=== PATIENT | female | born 2005 | race Caucasian/White ===

== ENCOUNTER 2024-04-18 13:19 | Emergency (ER) | payer OTHER, SELFPAY ==
[2024-04-18 13:40] VITALS: BP 138/82
--- NOTE | 2024-04-18 13:40 | ED.GENMED ---
ED Provider Triage
<Александр Gutierrez PA-C - Last Filed: 04/18/24 13:43>
-
Patient seen by provider in Triage?: Seen in Triage
Attestation: A medical screening examination has been initiated by a qualified medical provider. Based on the assessment performed at this time, it has been determined that an emergent medical condition may exist and the patient has been informed
that further medical evaluation and possible additional diagnostic testing may be needed.
HPI: 18-year-old female presenting to the ER with 3 weeks of cold-like symptoms. Went to urgent care and was given a prescription for doxycycline and reports felt a little bit better but upon completion of the antibiotic started to feel worse.
Patient reports urgent care did a chest x-ray and everything was reportedly unremarkable on the x-ray but had no further testing done. Patient states she has felt febrile but has not had any fevers. No known sick contacts. Basic labs including
monotest ordered, COVID and flu ordered. Patient otherwise stable.
GENERAL: Alert , in no apparent distress
EYE: No visual abnormalities.
NECK: Trachea midline
ENT: No visible abnormalities.
LUNGS: No acute respiratory distress
NEUROLOGICAL: Alert and oriented
SKIN: Skin intact. No visible changes.
MUSCULOSKELETAL: Moving extremities normally
PSYCH: Normal and appropriate interaction.
This is a medical evaluation conducted in person to initiate diagnostic evaluation and provide initial therapeutics. Please see further documentation by the treating clinician.
History of Present Illness
<Александр Gutierrez PA-C - Last Filed: 04/18/24 13:43>
General
Chief Complaint: Cold/Flu/URI Symptoms
Time Seen by Provider: 04/18/24 14:04
<Ailin Simons PA-C - Last Filed: 04/18/24 18:52>
General
Source: patient
Exam Limitations: none
History of Present Illness
History of Present Illness:
18yoF with no significant past medical history presenting with her friend for evaluation of multiple complaints. She states she has been sick for about 3 weeks. She reports cough, nasal congestion, bilateral ear pressure, fevers, and body aches.
Tmax 103 which was a few days ago. She also reports some chest tightness and feeling like she cannot get a deep enough breath. She was seen at urgent care last week and was prescribed doxycycline which seemed to help slightly. She finished
antibiotics 3 days ago. She was also given an albuterol inhaler which helps her breathing temporarily. She denies any history of asthma or smoking. She denies any vomiting, diarrhea, abdominal pain, dysuria. No known sick contacts.
Phy Exam
<Ailin Simons PA-C - Last Filed: 04/18/24 18:52>
General Physical Exam
General Presentation: well appearing and no apparent distress
General age: appears stated age
General Skin: warm and dry
General Habitus: normal
General Mental: alert
ENT Exam
ENT Exam: TM's normal, pharynx normal, neck supple and normocephalic
Cardiovascular Exam
Cardiovascular Exam: regular rate/rhythm and no murmur
Pulmonary Exam
Pulmonary Exam: lungs clear, no respiratory distress, no rales, no crackles and no rhonchi
Neurological Exam
Neurological Exam: alert
Funmi Coma Scale
Eye Opening: Spontaneous
Verbal Response: Oriented
Motor Response: Obeys Commands
GCS Total Score: 15
Skin Exam
Skin Exam: normal color and warm/dry
Psychiatric Exam
Psychiatric Exam: normal mood/affect
Course
<Александр Gutierrez PA-C - Last Filed: 04/18/24 13:43>
Orders/Labs/Results
Orders:
Orders
04/18/24 13:40
Test Result ONCE
04/18/24 13:51
COVID-19 Antigen Urgent
Source: Nasal Swab
Complete Blood Count/With Diff Urgent
Comprehensive Metabolic Panel Urgent
HCG, Serum Qualitative Screen Urgent
Monotest Urgent
Influenza A+B Rapid Molecular Urgent
EMA Source: Nasal Swab
Specimen Description:
04/18/24 14:17
Electrocardiogram (*1) Urgent
Reason for Study: Chest Pain
EKG- Treatment ONCE
CR Chest - 2 Views Urgent
Comment:
Reason For Exam: cough, CP
Abnormal Lab Results
04/18/24
13:51
Absolute Monos (auto) 0.7 H 10^3/uL
(0.1-0.6)
Monocytes % 10.3 H %
(1.7-9.3)
Carbon Dioxide 20 L mmol/L
(22-30)
Total Bilirubin 1.5 H mg/dl
(0.2-1.3)
Albumin 5.1 H g/dl
(3.5-5.0)
Monoscreen Positive A
(Negative)
SARS-CoV-2 Antigen Positive A
(Negative)
04/18/24 13:51
04/18/24 13:51
Vital Signs
Initial and Last Documented VS:
Initial Vital Signs
Temp Pulse Resp BP Pulse Ox
98.2 F 104 20 138/82 99
04/18/24 13:40 04/18/24 13:40 04/18/24 13:40 04/18/24 13:40 04/18/24 13:40
Last Documented Vital Signs
Temp Pulse Resp BP Pulse Ox
98.2 F 100 18 130/82 99
04/18/24 13:40 04/18/24 15:36 04/18/24 15:36 04/18/24 15:36 04/18/24 15:36
Jailynlt;Ailin Simons PA-C - Last Filed: 04/18/24 18:52>
Orders/Labs/Results
Orders:
Orders
04/18/24 13:40
Test Result ONCE
04/18/24 13:51
COVID-19 Antigen Urgent
Source: Nasal Swab
Complete Blood Count/With Diff Urgent
Comprehensive Metabolic Panel Urgent
HCG, Serum Qualitative Screen Urgent
Monotest Urgent
Influenza A+B Rapid Molecular Urgent
EMA Source: Nasal Swab
Specimen Description:
04/18/24 14:17
Electrocardiogram (*1) Urgent
Reason for Study: Chest Pain
EKG- Treatment ONCE
CR Chest - 2 Views Urgent
Comment:
Reason For Exam: cough, CP
Abnormal Lab Results
04/18/24
13:51
Absolute Monos (auto) 0.7 H 10^3/uL
(0.1-0.6)
Monocytes % 10.3 H %
(1.7-9.3)
Carbon Dioxide 20 L mmol/L
(22-30)
Total Bilirubin 1.5 H mg/dl
(0.2-1.3)
Albumin 5.1 H g/dl
(3.5-5.0)
Monoscreen Positive A
(Negative)
SARS-CoV-2 Antigen Positive A
(Negative)
04/18/24 13:51
04/18/24 13:51
Vital Signs
Initial and Last Documented VS:
Initial Vital Signs
Temp Pulse Resp BP Pulse Ox
98.2 F 104 20 138/82 99
04/18/24 13:40 04/18/24 13:40 04/18/24 13:40 04/18/24 13:40 04/18/24 13:40
Last Documented Vital Signs
Temp Pulse Resp BP Pulse Ox
98.2 F 100 18 130/82 99
04/18/24 13:40 04/18/24 15:36 04/18/24 15:36 04/18/24 15:36 04/18/24 15:36
<Ailin Simons PA-C - Last Filed: 04/18/24 18:52>
MDM/Problems Addressed
Differential Diagnosis Includes:
18yoF here with flu-like symptoms x 3 weeks. C/o cough, congestion, body aches, fevers, and chest tightness. Just finished a course of doxycycline. HR 104, remainder of vitals stable. She is well appearing in no distress. Exam is reassuring.
Differential diagnosis includes but is not limited to: viral illness, bronchitis, pneumonia
Initial ED plan: Labs and viral swabs obtained in triage. Will also check troponin/EKG and CXR.
<Ailin Simons PA-C - Last Filed: 04/18/24 18:52>
*EKG
Interpreted by ED Provider?: Yes
EKG Intrepretation Date: 04/18/24
Heart Rate: 83
Rate: normal
Rhythm: sinus
[place]: normal axis
Interval: normal interval
QRS Pattern: normal QRS
Ischemia: no ischemia
*Critical Care Note
Total Time (30-74mins, 75-104mins- exclusive of procedures): Not Applicable
<Ailin Simons PA-C - Last Filed: 04/18/24 18:52>
Update Note
Update Note:
Monospot and COVID swab both positive. Labs otherwise unremarkable including normal white count. EKG shows NSR without ischemic changes. Patient refused troponin testing and further lab draws. CXR normal without infiltrates. Given report of
wheezing, will prescribe prednisone. Refill give for albuterol. Advised close f/u with PCP and ED return precautions discussed. Patient expressed understanding and was discharged in stable condition.
ED Attending Note
<Александр Gutierrez PA-C - Last Filed: 04/18/24 13:43>
-
Portions of this chart may have been created with voice recognition software.� Occasional wrong word or��sound alike� substitutions may have occurred due to the inherent limitations of voice recognition software.
Discharge Plan
Departure
Patient Disposition: Home (Routine Discharge)
Date of Disposition: 04/18/24
Time of Disposition: 15:30
Patient with high blood pressure during this ER visit?: No
Discharge Problem:
COVID-19, Mononucleosis, Bronchospasm
Instructions: COVID-19 - ED discharge instructions, Mononucleosis
Prescriptions:
New
prednisone 50 mg tablet
50 mg PO DAILY Qty: 5 0RF
albuterol sulfate [Ventolin HFA] 90 mcg/actuation HFA aerosol inhaler
1 inh inhalation Q6H PRN (Reason: shortness of breath or wheezing) Qty: 1 0RF
Referrals:
Keiry Braun DO [Family Provider] -
Activity Restrictions/Additional Instructions:
Take prednisone as prescribed. Continue to use inhaler as needed for wheezing/chest tightness. Drink plenty of fluids and rest. No contact sports for 4-6 weeks.
Please follow-up with your family doctor. Return to the ED with any new or worsening symptoms.
Interventions
Interventions:
*Risk Screen - Suicide Last Done: 04/18/24 13:40
*General Assessment Last Done: 04/18/24 13:40
*Neglect/Abuse Screening Last Done: 04/18/24 13:40
*ED COVID-19 Vaccine History Last Done: 04/18/24 13:52
*Nursing Disposition Last Done: 04/18/24 15:36
ED- Pulmonary Assessment Last Done: 04/18/24 13:52
Discharge Date and Time
Discharge Date/Time: 04/18/24 15:37
Print Language: YAKUT
[2024-04-18 14:15] LABS: % Basophils 0.5 % (0-2); % Eosinophils 0.9 % (0-6); % Immature Granulocytes 0.2 % (0-0.5); % Lymphocytes 26.2 % (20.5-51.1); % Monocytes 10.3 % (1.7-9.3); % Neutrophils 61.9 % (42.2-75.2); Absolute Eosinophils 0.1 10^3/uL (0-0.7); Absolute Lymphocytes 1.7 10^3/uL (1.2-3.4); Absolute Monocytes 0.7 10^3/uL (0.1-0.6); Hematocrit 43.4 % (37.0-47.0); Hemoglobin 14.5 g/dL (12.0-16.0); Mean Corp Hgb Conc. 33.4 g/dL (33.0-37.0); Mean Corpuscular Hgb 30.5 pg (27.0-31.0); Mean Corpuscular Volume 91.4 fL (81.0-99.0); Mean Platelet Volume 9.2 fL (7.4-10.4); Nucleated Red Blood Cells % 0 %; Platelet Count 254 10^3/uL (130-400); Red Blood Cell Count 4.75 10^6/uL (4.20-5.40); Red Cell Dist. Width 12.9 % (11.5-14.5); White Blood Cell Count 6.4 10^3/uL (4.8-10.8)
[2024-04-18 14:26] LABS: HCG, Serum Qualitative Screen Negative
[2024-04-18 14:27] LABS: ALT (SGPT) 20 U/L (0-35); AST (SGOT) 21 U/L (14-36); Albumin 5.1 g/dl (3.5-5.0); Alkaline Phosphatase 85 U/L (38-126); Blood Urea Nitrogen 15 mg/dl (7-17); Calcium 9.6 mg/dl (8.4-10.2); Carbon Dioxide 20 mmol/L (22-30); Chloride 105 mmol/L (98-107); Glucose 95 mg/dl (70-99); Sodium 138 mmol/L (135-145); Total Bilirubin 1.5 mg/dl (0.2-1.3); Total Protein 7.7 g/dl (6.3-8.2); eGFR > 60.00
[2024-04-18 14:33] LABS: COVID-19 Antigen Positive (Negative)
[2024-04-18 15:21] LABS: Monotest Positive (Negative)
[2024-04-18 15:36] VITALS: BP 130/82
== END 2024-04-18 15:37 | disposition home or self-care (01) ==
LOC: EMR 13:19
PROVIDERS: Emergency Medicine; Physician Assistant Medical; EMERGENCY PHYSICIAN Emergency Medicine; FAMILY PHYSICIAN Family Medicine
DX: U07.1 COVID-19 (principal); B27.90 Infectious mononucleosis, unspecified without complication; J98.01 Acute bronchospasm; Z11.52 Encounter for screening for COVID-19
CPT/HCPCS: 99285; 71046; 80053; 84703; 85025; 86308; 87502; 87811; 93005